=== PATIENT | female | born 1995 | race Asian ===

== ENCOUNTER 2023-03-05 06:05 | Outpatient (REF) | payer OTHER, SELFPAY ==
--- NOTE | ~2023-03-05 | US_ITS ---
EXAMINATION: US PELVIS COMPLETE CLINICAL INFORMATION: PC west, irregular menses COMPARISON: None TECHNIQUE: Transabdominal and transvaginal imaging was performed. FINDINGS: The uterus is of normal size and echogenicity measuring 8.4 x 3.2 x 5.0 cm. Uterus is retroverted and retroflexed in position. A regular homogeneous endometrium is identified measuring 0.6 cm. The right ovary measures 4.0 x 2.4 x 2.6 cm for a volume of 13 mL, which is mildly enlarged which can be seen in the setting of PCOS. The left measures 2.0 x 3.6 x 1 point cm for a volume of 6.8 mL with peripheralization of follicles which can be seen in the setting of PCOS. There is trace simple physiologic volume pelvic free fluid. US/US pelvic and transvaginal IMPRESSION: 1. The right ovary is mildly enlarged and the left ovary demonstrates peripheralization of follicles which can seen in the setting of PCOS. 2. Uterus is retroverted and retroflexed in position. 3. Trace simple physiologic volume of free fluid in the pelvis.
== END 2023-03-05 06:06 | disposition home or self-care (01) ==
LOC: HO.UMASIMG 06:05
PROVIDERS: Visit Provider Nurse Practitioner Women's Health
DX: E28.2 Polycystic ovarian syndrome (principal); N92.6 Irregular menstruation, unspecified
CPT/HCPCS: 76830; 76856